=== PATIENT | male | born 1950 | race Caucasian/White ===

== ENCOUNTER 2017-09-19 13:54 | Inpatient (IN) | payer OTHER, MEDICARE ==
[2017-09-19] MEDS: IPRATROPIUM 0.5MG/ALBUTEROL 2.5MG INH SOL UD 3ML (DUONEB)(J7620) NEB ×3 (14:26→15:28)
[2017-09-19 14:42] LABS: ABG HCO3 24.2 MEQ/L (22.0-26.0); ABG O2 SATURATION 90.2 % (95.0-99.0); ABG PARTIAL PRESSURE O2 58.3 mmHg (75.0-100.0); ABG STANDARD HCO3 24.3 MEQ/L (22.0-26.0); ABG TOTAL CO2 25.4 MEQ/L (23.0-31.0); ABG pH (ARTERIAL) 7.422 UNITS (7.350-7.450)
[2017-09-19 15:27] LABS: HEMATOCRIT 37.7 % (42.0-52.0); MEAN CORPUSCULAR HEMOGLOBIN 31.3 pg (27.0-33.0); MEAN CORPUSCULAR HGB CONC 34.5 g/dl (32.0-36.5); MEAN CORPUSCULAR VOLUME 90.6 fl (80.0-96.0); PLATELET COUNT, AUTOMATED 523 10^3/uL (150-450); RED BLOOD COUNT 4.16 10^6/uL (4.30-6.10); RED CELL DISTRIBUTION WIDTH 12.7 % (11.5-14.5)
[2017-09-19 15:29] LABS: POSITIVE MORPH POS FLAG
[2017-09-19 15:30] LABS: ADD MANUAL DIFFER YES; DIFF SLIDE NUMBER 291
[2017-09-19] MEDS: cefTRIAXone SOD 1 GM in D5W MINI-BAG PLUS 50 ML IV (15:34)
[2017-09-19] MEDS: methylPREDNISolone INJ 125 MG/2 ML VIAL (J2930) IV (15:35)
[2017-09-19 15:47] LABS: INR 1.31; PROTHROMBIN TIME 16.6 SECONDS (12.4-14.5)
[2017-09-19 15:48] LABS: PARTIAL THROMBOPLASTIN TIME 33.9 SECONDS (26.8-37.9)
[2017-09-19 15:54] LABS: BANDS 9 % (< 11); LYMPHOCYTES 5 % (16-52); METAMYELOCYTES 4 % (0-0); MONOCYTES 5 % (0-8); NEUTROPHILS 77 % (35-75)
[2017-09-19 15:55] LABS: ALBUMIN 1.8 GM/DL (3.2-5.2); ALBUMIN/GLOBULIN RATIO 0.42 (1.00-1.93); ALKALINE PHOSPHATASE 217 U/L (45-117); ALT/SGPT 45 U/L (12-78); ANION GAP 10 MEQ/L (8-16); AST/SGOT 77 U/L (7-37); BILIRUBIN,DIRECT 0.3 MG/DL (0.0-0.2); BILIRUBIN,TOTAL 0.7 MG/DL (0.2-1.0); BLOOD UREA NITROGEN 27 MG/DL (7-18); CALCIUM LEVEL 8.6 MG/DL (8.8-10.2); CARBON DIOXIDE LEVEL 26 MEQ/L (21-32); CHLORIDE LEVEL 96 MEQ/L (98-107); CPK CREATINE PHOSPHOKINASE 27 U/L (39-308); CREATININE FOR GFR 0.66 MG/DL (0.70-1.30); GLOMERULAR FILTRATION RATE > 60.0 (>49); GLUCOSE, FASTING 104 MG/DL (70-100); PLATELET ESTIMATE INCREASED (NORMAL); POTASSIUM SERUM 3.7 MEQ/L (3.5-5.1); SODIUM LEVEL 132 MEQ/L (136-145); TOTAL PROTEIN 6.1 GM/DL (6.4-8.2); TROPONIN I < 0.02 NG/ML (< 0.10)
[2017-09-19 16:01] LABS: CK-MB VALUE MASS 1.4 NG/ML (<3.6); FREE T4 1.37 NG/DL (0.76-1.46); MB/CK RELATIVE INDEX 5.18 (< OR =4); NT-PRO BNP 1205 PG/ML (<125); THYROID STIMULATING HORMONE 0.903 uIU/ML (0.358-3.740)
[2017-09-19] MEDS: AZITHROMYCIN INJ 500 MG, VIAL MATE ADAPTER 1 EACH in D5W 250 ML IV (16:24)
[2017-09-19] MEDS: NS IV (18:22)
[2017-09-19] MEDS: DILUENT IV (18:22)
[2017-09-19] MEDS ORDERED: ACETAMINOPHEN TAB 650MG DOSE (2X325MG) PO (18:30)
[2017-09-19] MEDS ORDERED: DOCUSATE SODIUM 100 MG CAP PO (18:45)
[2017-09-19 19:17] LABS: LACTIC ACID SEPSIS PROTOCOL 4.5 MMOL/L (0.4-2.0)
[2017-09-19] MEDS: HYDROmorphone 2 MG TAB PO (19:53)
[2017-09-19] MEDS: **NOTE PATIENT COMMENT** MISC XX (21:54)
[2017-09-19] MEDS: NS 1,000 ML IV (22:08)
[2017-09-19] MEDS: OMEPRAZOLE 20 MG CAP PO (22:08)
[2017-09-20] MEDS: HYDROmorphone 2 MG TAB PO ×3 (04:05→16:37)
[2017-09-20 04:46] LABS: HEMATOCRIT 34.8 % (42.0-52.0); HEMOGLOBIN 11.9 g/dl (13.5-17.5); MEAN CORPUSCULAR HEMOGLOBIN 31.2 pg (27.0-33.0); MEAN CORPUSCULAR HGB CONC 34.2 g/dl (32.0-36.5); MEAN CORPUSCULAR VOLUME 91.3 fl (80.0-96.0); PLATELET COUNT, AUTOMATED 444 10^3/uL (150-450); RED BLOOD COUNT 3.81 10^6/uL (4.30-6.10); RED CELL DISTRIBUTION WIDTH 12.8 % (11.5-14.5)
[2017-09-20 04:53] LABS: ADD MANUAL DIFFER YES; DIFF SLIDE NUMBER 88; POSITIVE MORPH POS FLAG
[2017-09-20 05:09] LABS: ALBUMIN 1.6 GM/DL (3.2-5.2); ALBUMIN/GLOBULIN RATIO 0.36 (1.00-1.93); ALKALINE PHOSPHATASE 166 U/L (45-117); ALT/SGPT 37 U/L (12-78); ANION GAP 8 MEQ/L (8-16); AST/SGOT 62 U/L (7-37); BILIRUBIN,TOTAL 0.6 MG/DL (0.2-1.0); BLOOD UREA NITROGEN 23 MG/DL (7-18); CALCIUM LEVEL 8.4 MG/DL (8.8-10.2); CARBON DIOXIDE LEVEL 26 MEQ/L (21-32); CHLORIDE LEVEL 99 MEQ/L (98-107); CREATININE FOR GFR 0.53 MG/DL (0.70-1.30); GLOMERULAR FILTRATION RATE > 60.0 (>49); GLUCOSE, FASTING 110 MG/DL (70-100); MAGNESIUM LEVEL 2.2 MG/DL (1.8-2.4); POTASSIUM SERUM 3.8 MEQ/L (3.5-5.1); SODIUM LEVEL 133 MEQ/L (136-145); TOTAL PROTEIN 6.1 GM/DL (6.4-8.2)
[2017-09-20 05:11] LABS: LACTIC ACID SEPSIS PROTOCOL 2.9 MMOL/L (0.4-2.0)
[2017-09-20] MEDS ORDERED: NS 1,000 ML IV (05:30)
[2017-09-20 05:33] LABS: BANDS 10 % (< 11); LYMPHOCYTES 6 % (16-52); METAMYELOCYTES 6 % (0-0); MONOCYTES 6 % (0-8); MYELOCYTES 2 % (0-0); NEUTROPHILS 70 % (35-75); PLATELET CLUMPS SMALL AMT; PLATELET ESTIMATE INCREASED (NORMAL); TOXIC VACUOLATION 1+
[2017-09-20] MEDS: LEVOTHYROXINE 100MCG TABLET (0.1MG) PO (06:14)
[2017-09-20] MEDS: FUROSEMIDE 20 MG/2 ML VIAL (J1940) IV ×2 (06:14→13:54)
[2017-09-20] MEDS: OMEPRAZOLE 20 MG CAP PO (08:20)
[2017-09-20] MEDS: ENOXAPARIN 40 MG/0.4 ML SYRINGE (J1650) SC (08:20)
[2017-09-20] MEDS: VITAMIN D 1,000 INTERNATIONAL UNITS TABLET PO (08:20)
[2017-09-20] MEDS: guaiFENesin ER 600 MG TAB PO ×2 (10:12→22:01)
[2017-09-20] MEDS: LevoFLOXacin IV 500 MG in APPROPRIATE DILUENT 1 EA IV (13:54)
[2017-09-20] MEDS: IPRATROPIUM 0.5MG/ALBUTEROL 2.5MG INH SOL UD 3ML (DUONEB)(J7620) NEB ×3 (16:55→23:37)
[2017-09-20 19:11] LABS: ABG BASE EXCESS 7.3 (-2.0-2.0); ABG HCO3 31.6 MEQ/L (22.0-26.0); ABG O2 SATURATION 95.3 % (95.0-99.0); ABG PARTIAL PRESSURE CO2 43.4 mmHg (35.0-45.0); ABG PARTIAL PRESSURE O2 77.3 mmHg (75.0-100.0); ABG TOTAL CO2 32.9 MEQ/L (23.0-31.0)
[2017-09-20] MEDS: NALOXONE INJ 0.4 MG/1 ML VIAL (J2310) IV (19:24)
[2017-09-20] MEDS: methylPREDNISolone INJ 125 MG/2 ML VIAL (J2930) IV (20:19)
[2017-09-20] MEDS: VANCOMYCIN HCL 500 MG in D5W MINI-BAG PLUS 100 ML IV (20:30)
[2017-09-20] MEDS: **NOTE PATIENT COMMENT** MISC XX (21:00)
[2017-09-20] MEDS: VANCOMYCIN HCL 1,000 MG, VIAL MATE ADAPTER 1 EACH in D5W 250 ML IV (22:00)
[2017-09-20] MEDS: ENOXAPARIN 80 MG/0.8 ML SYRINGE (J1650) SC (22:02)
[2017-09-21] MEDS: HYDROmorphone (DILAUDID) 4 MG TAB PO ×3 (00:01→18:10)
[2017-09-21] MEDS: methylPREDNISolone INJ 125 MG/2 ML VIAL (J2930) IV ×4 (02:04→20:16)
[2017-09-21] MEDS: IPRATROPIUM 0.5MG/ALBUTEROL 2.5MG INH SOL UD 3ML (DUONEB)(J7620) NEB ×6 (03:39→23:20)
[2017-09-21 05:17] LABS: HEMATOCRIT 36.3 % (42.0-52.0); HEMOGLOBIN 12.5 g/dl (13.5-17.5); MEAN CORPUSCULAR HEMOGLOBIN 31.9 pg (27.0-33.0); MEAN CORPUSCULAR HGB CONC 34.4 g/dl (32.0-36.5); MEAN CORPUSCULAR VOLUME 92.6 fl (80.0-96.0); PLATELET COUNT, AUTOMATED 416 10^3/uL (150-450); RED BLOOD COUNT 3.92 10^6/uL (4.30-6.10); RED CELL DISTRIBUTION WIDTH 12.5 % (11.5-14.5)
[2017-09-21 05:20] LABS: ADD MANUAL DIFFER YES; DIFF SLIDE NUMBER 48; POSITIVE MORPH POS FLAG
[2017-09-21 05:44] LABS: ATYPICAL LYMPH 2 % (0-5); LYMPHOCYTES 4 % (16-52); MONOCYTES 2 % (0-8); NEUTROPHILS 92 % (35-75); PLATELET ESTIMATE INCREASED (NORMAL)
[2017-09-21 05:47] LABS: ALBUMIN 1.6 GM/DL (3.2-5.2); ALBUMIN/GLOBULIN RATIO 0.33 (1.00-1.93); ALKALINE PHOSPHATASE 157 U/L (45-117); ALT/SGPT 41 U/L (12-78); ANION GAP 1 MEQ/L (8-16); AST/SGOT 75 U/L (7-37); BILIRUBIN,TOTAL 0.6 MG/DL (0.2-1.0); BLOOD UREA NITROGEN 29 MG/DL (7-18); CALCIUM LEVEL 8.6 MG/DL (8.8-10.2); CARBON DIOXIDE LEVEL 33 MEQ/L (21-32); CHLORIDE LEVEL 98 MEQ/L (98-107); CREATININE FOR GFR 0.56 MG/DL (0.70-1.30); GLOMERULAR FILTRATION RATE > 60.0 (>49); GLUCOSE, FASTING 111 MG/DL (70-100); MAGNESIUM LEVEL 2.3 MG/DL (1.8-2.4); POTASSIUM SERUM 3.7 MEQ/L (3.5-5.1); SODIUM LEVEL 132 MEQ/L (136-145); TOTAL PROTEIN 6.4 GM/DL (6.4-8.2)
[2017-09-21] MEDS: VANCOMYCIN HCL 1,000 MG, VIAL MATE ADAPTER 1 EACH in D5W 250 ML IV ×2 (06:05→17:36)
[2017-09-21] MEDS: LEVOTHYROXINE 100MCG TABLET (0.1MG) PO (06:05)
[2017-09-21] MEDS: ALBUTEROL SULFATE 2.5 MG/0.5 ML INH NEB SOLN INH (08:16)
[2017-09-21] MEDS: guaiFENesin ER 600 MG TAB PO ×2 (08:23→20:17)
[2017-09-21] MEDS: OMEPRAZOLE 20 MG CAP PO (08:23)
[2017-09-21] MEDS: ENOXAPARIN 80 MG/0.8 ML SYRINGE (J1650) SC ×2 (08:23→20:17)
[2017-09-21] MEDS: VITAMIN D 1,000 INTERNATIONAL UNITS TABLET PO (08:23)
[2017-09-21] MEDS: INFLUENZA VIRUS VACCINE HIGH DOSE 0.5 ML SYRINGE (90662) IM (09:00)
[2017-09-21] MEDS ORDERED: INFLUENZA VIRUS VACCINE HIGH DOSE 0.5 ML SYRINGE (90662) IM (10:00)
[2017-09-21] MEDS: LevoFLOXacin IV 750 MG in APPROPRIATE DILUENT 1 EA IV (14:18)
[2017-09-21 15:42] LABS: ANION GAP 7 MEQ/L (8-16); BLOOD UREA NITROGEN 30 MG/DL (7-18); CALCIUM LEVEL 8.8 MG/DL (8.8-10.2); CARBON DIOXIDE LEVEL 30 MEQ/L (21-32); CHLORIDE LEVEL 97 MEQ/L (98-107); CK-MB VALUE MASS 1.6 NG/ML (<3.6); CPK CREATINE PHOSPHOKINASE 27 U/L (39-308); CREATININE FOR GFR 0.59 MG/DL (0.70-1.30); GLOMERULAR FILTRATION RATE > 60.0 (>49); GLUCOSE, FASTING 132 MG/DL (70-100); MAGNESIUM LEVEL 2.6 MG/DL (1.8-2.4); MB/CK RELATIVE INDEX 5.92 (< OR =4); POTASSIUM SERUM 3.7 MEQ/L (3.5-5.1); SODIUM LEVEL 134 MEQ/L (136-145); TROPONIN I < 0.02 NG/ML (< 0.10)
[2017-09-21] MEDS: METOPROLOL TART 12.5 MG PER 1/2 TAB PO ×2 (15:48→20:17)
[2017-09-21] MEDS: POTASSIUM CHLORIDE 10 MEQ SR TABLET PO (15:50)
[2017-09-21] MEDS: **NOTE PATIENT COMMENT** MISC XX (20:18)
[2017-09-22] MEDS: methylPREDNISolone INJ 125 MG/2 ML VIAL (J2930) IV ×4 (03:17→20:18)
[2017-09-22] MEDS: IPRATROPIUM 0.5MG/ALBUTEROL 2.5MG INH SOL UD 3ML (DUONEB)(J7620) NEB ×6 (03:28→23:04)
[2017-09-22 04:41] LABS: BASO # 0.1 10^3/uL (0.0-0.2); BASO % 0.3 % (0.0-1.0); HEMATOCRIT 36.6 % (42.0-52.0); HEMOGLOBIN 12.3 g/dl (13.5-17.5); LYMPH # 1.6 10^3/uL (1.5-4.5); LYMPH % 8.1 % (24.0-44.0); MEAN CORPUSCULAR HEMOGLOBIN 31.1 pg (27.0-33.0); MEAN CORPUSCULAR HGB CONC 33.6 g/dl (32.0-36.5); MEAN CORPUSCULAR VOLUME 92.7 fl (80.0-96.0); MONO # 0.5 10^3/uL (0.0-0.8); MONO % 2.4 % (0.0-5.0); NEUTROPHILS # 16.8 10^3/uL (1.8-7.7); NEUTROPHILS % 87.2 % (36.0-66.0); PLATELET COUNT, AUTOMATED 391 10^3/uL (150-450); RED BLOOD COUNT 3.95 10^6/uL (4.30-6.10); RED CELL DISTRIBUTION WIDTH 12.6 % (11.5-14.5); WHITE BLOOD COUNT 19.3 10^3/uL (4.0-10.0)
[2017-09-22 05:03] LABS: ALBUMIN 1.5 GM/DL (3.2-5.2); ALBUMIN/GLOBULIN RATIO 0.31 (1.00-1.93); ALKALINE PHOSPHATASE 158 U/L (45-117); ALT/SGPT 50 U/L (12-78); ANION GAP 5 MEQ/L (8-16); AST/SGOT 92 U/L (7-37); BILIRUBIN,TOTAL 0.4 MG/DL (0.2-1.0); BLOOD UREA NITROGEN 28 MG/DL (7-18); CALCIUM LEVEL 8.5 MG/DL (8.8-10.2); CARBON DIOXIDE LEVEL 31 MEQ/L (21-32); CHLORIDE LEVEL 98 MEQ/L (98-107); CREATININE FOR GFR 0.52 MG/DL (0.70-1.30); GLOMERULAR FILTRATION RATE > 60.0 (>49); GLUCOSE, FASTING 116 MG/DL (70-100); MAGNESIUM LEVEL 2.5 MG/DL (1.8-2.4); POTASSIUM SERUM 4.4 MEQ/L (3.5-5.1); SODIUM LEVEL 134 MEQ/L (136-145); TOTAL PROTEIN 6.4 GM/DL (6.4-8.2); VANCOMYCIN LEVEL TROUGH 7.9 UG/ML (10.0-20.0)
[2017-09-22] MEDS: HYDROmorphone (DILAUDID) 4 MG TAB PO ×3 (06:34→22:52)
[2017-09-22] MEDS: LEVOTHYROXINE 100MCG TABLET (0.1MG) PO (06:34)
[2017-09-22] MEDS: VANCOMYCIN HCL 1,500 MG in D5W 500 ML IV ×2 (06:49→17:56)
[2017-09-22] MEDS: OMEPRAZOLE 20 MG CAP PO (09:00)
[2017-09-22] MEDS: VITAMIN D 1,000 INTERNATIONAL UNITS TABLET PO (09:00)
[2017-09-22] MEDS: guaiFENesin ER 600 MG TAB PO ×2 (09:00→20:17)
[2017-09-22] MEDS: ENOXAPARIN 80 MG/0.8 ML SYRINGE (J1650) SC ×2 (09:01→20:16)
[2017-09-22] MEDS: METOPROLOL TART 12.5 MG PER 1/2 TAB PO ×2 (09:01→20:15)
[2017-09-22] MEDS: LevoFLOXacin IV 750 MG in APPROPRIATE DILUENT 1 EA IV (14:22)
[2017-09-22] MEDS: **NOTE PATIENT COMMENT** MISC XX (20:17)
[2017-09-23] MEDS: methylPREDNISolone INJ 125 MG/2 ML VIAL (J2930) IV ×2 (01:18→07:18)
[2017-09-23] MEDS: IPRATROPIUM 0.5MG/ALBUTEROL 2.5MG INH SOL UD 3ML (DUONEB)(J7620) NEB ×6 (03:25→23:52)
[2017-09-23 04:46] LABS: BASO % 0.2 % (0.0-1.0); HEMATOCRIT 38.2 % (42.0-52.0); HEMOGLOBIN 12.8 g/dl (13.5-17.5); IMMATURE GRANULOCYTE % 1.7 % (0-3.0); LYMPH # 1.4 10^3/uL (1.5-4.5); LYMPH % 7.2 % (24.0-44.0); MEAN CORPUSCULAR HEMOGLOBIN 31.3 pg (27.0-33.0); MEAN CORPUSCULAR HGB CONC 33.5 g/dl (32.0-36.5); MEAN CORPUSCULAR VOLUME 93.4 fl (80.0-96.0); MONO # 0.4 10^3/uL (0.0-0.8); MONO % 2.1 % (0.0-5.0); NEUTROPHILS # 17.3 10^3/uL (1.8-7.7); NEUTROPHILS % 88.8 % (36.0-66.0); PLATELET COUNT, AUTOMATED 330 10^3/uL (150-450); RED BLOOD COUNT 4.09 10^6/uL (4.30-6.10); RED CELL DISTRIBUTION WIDTH 12.5 % (11.5-14.5); WHITE BLOOD COUNT 19.5 10^3/uL (4.0-10.0)
[2017-09-23 05:01] LABS: ALBUMIN 1.5 GM/DL (3.2-5.2); ALBUMIN/GLOBULIN RATIO 0.32 (1.00-1.93); ALKALINE PHOSPHATASE 168 U/L (45-117); ALT/SGPT 81 U/L (12-78); ANION GAP 3 MEQ/L (8-16); AST/SGOT 132 U/L (7-37); BILIRUBIN,TOTAL 0.4 MG/DL (0.2-1.0); BLOOD UREA NITROGEN 26 MG/DL (7-18); C REACTIVE PROTEIN QUANTITATIV 6.21 MG/DL (0.00-0.30); CALCIUM LEVEL 8.3 MG/DL (8.8-10.2); CARBON DIOXIDE LEVEL 31 MEQ/L (21-32); CHLORIDE LEVEL 98 MEQ/L (98-107); CREATININE FOR GFR 0.46 MG/DL (0.70-1.30); GLOMERULAR FILTRATION RATE > 60.0 (>49); GLUCOSE, FASTING 104 MG/DL (70-100); MAGNESIUM LEVEL 2.3 MG/DL (1.8-2.4); POTASSIUM SERUM 4.4 MEQ/L (3.5-5.1); SODIUM LEVEL 132 MEQ/L (136-145); TOTAL PROTEIN 6.2 GM/DL (6.4-8.2)
[2017-09-23] MEDS: LEVOTHYROXINE 100MCG TABLET (0.1MG) PO (06:13)
[2017-09-23] MEDS: VANCOMYCIN HCL 1,500 MG in D5W 500 ML IV ×2 (06:13→17:28)
[2017-09-23] MEDS: VITAMIN D 1,000 INTERNATIONAL UNITS TABLET PO (08:11)
[2017-09-23] MEDS: OMEPRAZOLE 20 MG CAP PO (08:11)
[2017-09-23] MEDS: ENOXAPARIN 80 MG/0.8 ML SYRINGE (J1650) SC ×2 (08:12→20:29)
[2017-09-23] MEDS: guaiFENesin ER 600 MG TAB PO ×2 (08:12→20:28)
[2017-09-23] MEDS: METOPROLOL TART 12.5 MG PER 1/2 TAB PO ×2 (08:13→20:29)
[2017-09-23] MEDS: LACTOBACILLUS ACIDOPHILUS CAP (BACID) PO ×2 (11:26→20:28)
[2017-09-23] MEDS: predniSONE 20 MG TAB PO (11:27)
[2017-09-23] MEDS: HYDROmorphone (DILAUDID) 4 MG TAB PO ×2 (13:23→20:28)
[2017-09-23] MEDS: LevoFLOXacin IV 750 MG in APPROPRIATE DILUENT 1 EA IV (13:57)
[2017-09-23 17:25] LABS: VANCOMYCIN LEVEL TROUGH 13.4 UG/ML (10.0-20.0)
[2017-09-23] MEDS: **NOTE PATIENT COMMENT** MISC XX (20:29)
[2017-09-24] MEDS: IPRATROPIUM 0.5MG/ALBUTEROL 2.5MG INH SOL UD 3ML (DUONEB)(J7620) NEB ×5 (04:07→19:40)
[2017-09-24] MEDS: MORPHINE 4 MG/ML 1ML VIAL/SYRINGE (J2270) IV ×5 (04:36→21:50)
[2017-09-24] MEDS: LEVOTHYROXINE 100MCG TABLET (0.1MG) PO (05:57)
[2017-09-24] MEDS: HYDROmorphone (DILAUDID) 4 MG TAB PO ×3 (05:57→20:00)
[2017-09-24] MEDS: TIOTROPIUM INHALER/CAPSULE (SPIRIVA) INH (08:45)
[2017-09-24] MEDS: predniSONE 20 MG TAB PO (09:00)
[2017-09-24] MEDS: OMEPRAZOLE 20 MG CAP PO (09:00)
[2017-09-24] MEDS: ENOXAPARIN 80 MG/0.8 ML SYRINGE (J1650) SC (09:00)
[2017-09-24] MEDS: guaiFENesin ER 600 MG TAB PO (09:00)
[2017-09-24] MEDS: VITAMIN D 1,000 INTERNATIONAL UNITS TABLET PO (09:00)
[2017-09-24] MEDS: LACTOBACILLUS ACIDOPHILUS CAP (BACID) PO (09:00)
[2017-09-24] MEDS: METOPROLOL TART 12.5 MG PER 1/2 TAB PO (09:00)
[2017-09-24] MEDS ORDERED: TIOTROPIUM INHALER/CAPSULE (SPIRIVA) INH (09:16)
[2017-09-24] MEDS: INFLUENZA VIRUS VACCINE HIGH DOSE 0.5 ML SYRINGE (90662) IM (10:00)
[2017-09-24 14:09] LABS: BODY FLUID CULTURE Not Indicated (.); LEGIONELLA ANTIGEN URINE Negative (Negative); ORGANISM ID Not indicated. (.); SPECIMEN SOURCE Urine (.); URINE STREP PNEUMONIAE ANTIGEN Negative (Negative)
[2017-09-24] MEDS: **NOTE PATIENT COMMENT** MISC XX (21:58)
[2017-09-25] MEDS: MORPHINE 4 MG/ML 1ML VIAL/SYRINGE (J2270) IV ×6 (00:57→22:45)
[2017-09-25] MEDS: HYDROmorphone (DILAUDID) 4 MG TAB PO ×2 (02:31→12:03)
[2017-09-25] MEDS: IPRATROPIUM 0.5MG/ALBUTEROL 2.5MG INH SOL UD 3ML (DUONEB)(J7620) NEB ×7 (04:00→23:38)
[2017-09-25] MEDS: **NOTE PATIENT COMMENT** MISC XX (21:00)
[2017-09-26] MEDS: MORPHINE 4 MG/ML 1ML VIAL/SYRINGE (J2270) IV ×7 (01:50→20:16)
[2017-09-26] MEDS: HYDROmorphone (DILAUDID) 4 MG TAB PO ×2 (02:54→21:05)
[2017-09-26] MEDS: IPRATROPIUM 0.5MG/ALBUTEROL 2.5MG INH SOL UD 3ML (DUONEB)(J7620) NEB ×6 (03:19→23:31)
[2017-09-26] MEDS: **NOTE PATIENT COMMENT** MISC XX (21:00)
[2017-09-26] MEDS ORDERED: MORPHINE 4 MG/ML 1ML VIAL/SYRINGE (J2270) IV (22:20)
[2017-09-26 23:50] LABS: ABG BASE EXCESS 6.2 (-2.0-2.0); ABG HCO3 29.7 MEQ/L (22.0-26.0); ABG O2 SATURATION 91.6 % (95.0-99.0); ABG PARTIAL PRESSURE CO2 38.7 mmHg (35.0-45.0); ABG PARTIAL PRESSURE O2 59.1 mmHg (75.0-100.0); ABG TOTAL CO2 30.9 MEQ/L (23.0-31.0); ABG pH (ARTERIAL) 7.503 UNITS (7.350-7.450)
[2017-09-27 00:23] LABS: BASO # 0.1 10^3/uL (0.0-0.2); BASO % 0.3 % (0.0-1.0); EOS # 0.4 10^3/uL (0.0-0.50); EOS % 1.2 % (0.0-3.0); HEMATOCRIT 39.6 % (42.0-52.0); HEMOGLOBIN 13.4 g/dl (13.5-17.5); IMMATURE GRANULOCYTE % 3.2 % (0-3.0); LYMPH # 2.1 10^3/uL (1.5-4.5); LYMPH % 6.3 % (24.0-44.0); MEAN CORPUSCULAR HEMOGLOBIN 31.3 pg (27.0-33.0); MEAN CORPUSCULAR HGB CONC 33.8 g/dl (32.0-36.5); MEAN CORPUSCULAR VOLUME 92.5 fl (80.0-96.0); PLATELET COUNT, AUTOMATED 440 10^3/uL (150-450); RED BLOOD COUNT 4.28 10^6/uL (4.30-6.10); RED CELL DISTRIBUTION WIDTH 12.7 % (11.5-14.5)
[2017-09-27] MEDS: PIPERACILLIN/TAZOBACTAM SOD 3.375 GM in D5W MINI-BAG PLUS 50 ML IV ×5 (00:53→23:41)
[2017-09-27 00:55] LABS: ANION GAP 3 MEQ/L (8-16); BLOOD UREA NITROGEN 18 MG/DL (7-18); CARBON DIOXIDE LEVEL 33 MEQ/L (21-32); CHLORIDE LEVEL 99 MEQ/L (98-107); CREATININE FOR GFR 0.58 MG/DL (0.70-1.30); GLOMERULAR FILTRATION RATE > 60.0 (>49); GLUCOSE, FASTING 118 MG/DL (70-100); POTASSIUM SERUM 3.8 MEQ/L (3.5-5.1); SODIUM LEVEL 135 MEQ/L (136-145)
[2017-09-27 00:58] LABS: NEUTROPHILS # 28.7 10^3/uL (1.8-7.7); POS COUNT POS FLAG; POSITIVE DIFF POS FLAG; WHITE BLOOD COUNT 33.4 10^3/uL (4.0-10.0)
[2017-09-27 01:43] LABS: LACTIC ACID SEPSIS PROTOCOL 2.9 MMOL/L (0.4-2.0)
[2017-09-27] MEDS: NS 1,000 ML IV (02:11)
[2017-09-27] MEDS: VANCOMYCIN HCL 1,000 MG, VIAL MATE ADAPTER 1 EACH in D5W 250 ML IV ×4 (03:22→18:47)
[2017-09-27] MEDS: IPRATROPIUM 0.5MG/ALBUTEROL 2.5MG INH SOL UD 3ML (DUONEB)(J7620) NEB ×5 (04:00→20:45)
[2017-09-27 04:53] LABS: BASO # 0.1 10^3/uL (0.0-0.2); BASO % 0.3 % (0.0-1.0); EOS # 0.5 10^3/uL (0.0-0.50); EOS % 1.8 % (0.0-3.0); HEMOGLOBIN 12.1 g/dl (13.5-17.5); IMMATURE GRANULOCYTE % 3.6 % (0-3.0); LYMPH # 1.9 10^3/uL (1.5-4.5); LYMPH % 6.8 % (24.0-44.0); MEAN CORPUSCULAR HEMOGLOBIN 30.9 pg (27.0-33.0); MEAN CORPUSCULAR HGB CONC 32.7 g/dl (32.0-36.5); MEAN CORPUSCULAR VOLUME 94.4 fl (80.0-96.0); MONO % 3.5 % (0.0-5.0); NEUTROPHILS # 23.6 10^3/uL (1.8-7.7); PLATELET COUNT, AUTOMATED 354 10^3/uL (150-450); RED BLOOD COUNT 3.92 10^6/uL (4.30-6.10); RED CELL DISTRIBUTION WIDTH 12.8 % (11.5-14.5)
[2017-09-27 05:15] LABS: ANION GAP 3 MEQ/L (8-16); BLOOD UREA NITROGEN 16 MG/DL (7-18); CALCIUM LEVEL 7.5 MG/DL (8.8-10.2); CARBON DIOXIDE LEVEL 31 MEQ/L (21-32); CHLORIDE LEVEL 101 MEQ/L (98-107); CREATININE FOR GFR 0.56 MG/DL (0.70-1.30); GLOMERULAR FILTRATION RATE > 60.0 (>49); GLUCOSE, FASTING 109 MG/DL (70-100); POTASSIUM SERUM 3.9 MEQ/L (3.5-5.1); SODIUM LEVEL 135 MEQ/L (136-145)
[2017-09-27] MEDS: HYDROmorphone (DILAUDID) 4 MG TAB PO ×3 (06:11→21:09)
[2017-09-27 07:19] LABS: ALBUMIN 1.3 GM/DL (3.2-5.2); ALKALINE PHOSPHATASE 167 U/L (45-117); ALT/SGPT 81 U/L (12-78); AST/SGOT 80 U/L (7-37); BILIRUBIN,DIRECT 0.1 MG/DL (0.0-0.2); BILIRUBIN,TOTAL 0.5 MG/DL (0.2-1.0); C REACTIVE PROTEIN QUANTITATIV 4.68 MG/DL (0.00-0.30); TOTAL PROTEIN 5.6 GM/DL (6.4-8.2)
[2017-09-27 18:32] LABS: VANCOMYCIN LEVEL TROUGH 17.5 UG/ML (10.0-20.0)
[2017-09-27] MEDS: **NOTE PATIENT COMMENT** MISC XX (20:30)
[2017-09-27] MEDS: SLF 3 ML SYR IV (22:00)
[2017-09-28] MEDS: VANCOMYCIN HCL 1,000 MG, VIAL MATE ADAPTER 1 EACH in D5W 250 ML IV ×3 (03:01→17:53)
[2017-09-28] MEDS: SLF 3 ML SYR IV ×4 (03:02→20:53)
[2017-09-28] MEDS: IPRATROPIUM 0.5MG/ALBUTEROL 2.5MG INH SOL UD 3ML (DUONEB)(J7620) NEB ×8 (04:00→20:55)
[2017-09-28 05:08] LABS: BASO # 0.1 10^3/uL (0.0-0.2); BASO % 0.2 % (0.0-1.0); EOS # 0.4 10^3/uL (0.0-0.50); EOS % 1.3 % (0.0-3.0); HEMATOCRIT 38.8 % (42.0-52.0); IMMATURE GRANULOCYTE % 2.5 % (0-3.0); LYMPH # 1.3 10^3/uL (1.5-4.5); LYMPH % 3.9 % (24.0-44.0); MEAN CORPUSCULAR HEMOGLOBIN 31.6 pg (27.0-33.0); MEAN CORPUSCULAR HGB CONC 33.5 g/dl (32.0-36.5); MEAN CORPUSCULAR VOLUME 94.4 fl (80.0-96.0); MONO # 1.7 10^3/uL (0.0-0.8); MONO % 5.1 % (0.0-5.0); PLATELET COUNT, AUTOMATED 356 10^3/uL (150-450); RED BLOOD COUNT 4.11 10^6/uL (4.30-6.10)
[2017-09-28 05:22] LABS: ANION GAP 3 MEQ/L (8-16); BLOOD UREA NITROGEN 12 MG/DL (7-18); CALCIUM LEVEL 7.7 MG/DL (8.8-10.2); CARBON DIOXIDE LEVEL 28 MEQ/L (21-32); CHLORIDE LEVEL 101 MEQ/L (98-107); CREATININE FOR GFR 0.61 MG/DL (0.70-1.30); GLOMERULAR FILTRATION RATE > 60.0 (>49); GLUCOSE, FASTING 95 MG/DL (70-100); POTASSIUM SERUM 4.2 MEQ/L (3.5-5.1); SODIUM LEVEL 132 MEQ/L (136-145)
[2017-09-28] MEDS: LEVOTHYROXINE 100MCG TABLET (0.1MG) PO (05:37)
[2017-09-28] MEDS: PIPERACILLIN/TAZOBACTAM SOD 3.375 GM in D5W MINI-BAG PLUS 50 ML IV ×3 (05:38→16:47)
[2017-09-28] MEDS: HYDROmorphone (DILAUDID) 4 MG TAB PO ×3 (05:39→17:54)
[2017-09-28 05:51] LABS: NEUTROPHILS # 28.1 10^3/uL (1.8-7.7); POS COUNT POS FLAG; POSITIVE DIFF POS FLAG; WHITE BLOOD COUNT 32.3 10^3/uL (4.0-10.0)
[2017-09-28] MEDS: **NOTE PATIENT COMMENT** MISC XX (20:53)
[2017-09-29] MEDS: PIPERACILLIN/TAZOBACTAM SOD 3.375 GM in D5W MINI-BAG PLUS 50 ML IV ×4 (00:29→17:37)
[2017-09-29] MEDS: IPRATROPIUM 0.5MG/ALBUTEROL 2.5MG INH SOL UD 3ML (DUONEB)(J7620) NEB ×8 (01:22→23:59)
[2017-09-29] MEDS: HYDROmorphone (DILAUDID) 4 MG TAB PO ×3 (03:02→17:36)
[2017-09-29] MEDS: VANCOMYCIN HCL 1,000 MG, VIAL MATE ADAPTER 1 EACH in D5W 250 ML IV ×2 (03:03→14:51)
[2017-09-29 05:50] LABS: BASO # 0.1 10^3/uL (0.0-0.2); BASO % 0.2 % (0.0-1.0); EOS # 0.3 10^3/uL (0.0-0.50); EOS % 0.7 % (0.0-3.0); HEMATOCRIT 37.1 % (42.0-52.0); HEMOGLOBIN 12.4 g/dl (13.5-17.5); IMMATURE GRANULOCYTE % 1.7 % (0-3.0); LYMPH # 1.2 10^3/uL (1.5-4.5); LYMPH % 3.6 % (24.0-44.0); MEAN CORPUSCULAR HEMOGLOBIN 31.3 pg (27.0-33.0); MEAN CORPUSCULAR HGB CONC 33.4 g/dl (32.0-36.5); MEAN CORPUSCULAR VOLUME 93.7 fl (80.0-96.0); MONO # 1.7 10^3/uL (0.0-0.8); MONO % 5.1 % (0.0-5.0); NEUTROPHILS % 88.7 % (36.0-66.0); PLATELET COUNT, AUTOMATED 439 10^3/uL (150-450); RED BLOOD COUNT 3.96 10^6/uL (4.30-6.10)
[2017-09-29] MEDS: LEVOTHYROXINE 100MCG TABLET (0.1MG) PO (05:51)
[2017-09-29] MEDS: SLF 3 ML SYR IV ×2 (05:51→12:53)
[2017-09-29 06:10] LABS: ANION GAP 5 MEQ/L (8-16); BLOOD UREA NITROGEN 14 MG/DL (7-18); CALCIUM LEVEL 7.8 MG/DL (8.8-10.2); CARBON DIOXIDE LEVEL 33 MEQ/L (21-32); CHLORIDE LEVEL 97 MEQ/L (98-107); CREATININE FOR GFR 0.72 MG/DL (0.70-1.30); GLOMERULAR FILTRATION RATE > 60.0 (>49); GLUCOSE, FASTING 108 MG/DL (70-100); POTASSIUM SERUM 3.7 MEQ/L (3.5-5.1); SODIUM LEVEL 135 MEQ/L (136-145)
[2017-09-29 06:16] LABS: NEUTROPHILS # 30.1 10^3/uL (1.8-7.7); POS COUNT POS FLAG; POSITIVE DIFF POS FLAG; WHITE BLOOD COUNT 33.9 10^3/uL (4.0-10.0)
[2017-09-29 08:09] LABS: MAGNESIUM LEVEL 2.2 MG/DL (1.8-2.4)
[2017-09-29 08:19] LABS: C REACTIVE PROTEIN QUANTITATIV 8.58 MG/DL (0.00-0.30)
[2017-09-29] MEDS: LIDOCAINE 5% (LIDODERM) PATCH TOP (09:20)
[2017-09-29 10:50] LABS: VANCOMYCIN LEVEL TROUGH 20.6 UG/ML (10.0-20.0)
[2017-09-29] MEDS ORDERED: ISOVUE-370 76% 100ML VIAL (Q9967) As Ordered (16:36)
[2017-09-29] MEDS ORDERED: SCOPOLAMINE 1MG TRANSDERMAL PATCH TOP (19:30)
[2017-09-29] MEDS: ALBUTEROL SULFATE 2.5 MG/0.5 ML INH NEB SOLN INH (21:31)
[2017-09-29] MEDS: LORazepam 1 MG TAB PO (21:48)
[2017-09-29] MEDS: MORPHINE SULFATE ORAL SOLN 10 MG/5 ML UD SL (21:48)
[2017-09-30] MEDS: IPRATROPIUM 0.5MG/ALBUTEROL 2.5MG INH SOL UD 3ML (DUONEB)(J7620) NEB ×4 (03:49→11:39)
[2017-09-30] MEDS: MORPHINE SULFATE ORAL SOLN 10 MG/5 ML UD SL ×2 (04:31→09:04)
[2017-09-30] MEDS: LORazepam 1 MG TAB PO ×2 (04:31→12:16)
[2017-09-30] MEDS: MORPHINE 10MG/0.5ML ORAL CONCENTRATE SOLUTION U/D SL ×2 (10:32→12:54)
== END 2017-09-30 14:07 | disposition hospice, home (50) | DRG 871 ==
LOC: M ICU 09-20 05:37 → M MSPAV 09-24 11:55 → M PCU 09-27 11:23 → M MS5PR 09-30 05:27 → M ED 13:54 → M ED INP 18:24
DX: A41.9 Sepsis, unspecified organism (principal); J18.9 Pneumonia, unspecified organism; J96.01 Acute respiratory failure with hypoxia; E87.2 Acidosis; E87.1 Hypo-osmolality and hyponatremia; F43.10 Post-traumatic stress disorder, unspecified; F41.9 Anxiety disorder, unspecified; J84.10 Pulmonary fibrosis, unspecified; Z51.5 Encounter for palliative care; Z66 Do not resuscitate; J43.9 Emphysema, unspecified; E03.9 Hypothyroidism, unspecified; J47.9 Bronchiectasis, uncomplicated; G89.4 Chronic pain syndrome; K21.9 Gastro-esophageal reflux disease without esophagitis; Z87.891 Personal history of nicotine dependence; Z79.899 Other long term (current) drug therapy